=== PATIENT | female | born 1960 | race African-American/Black ===

== ENCOUNTER → 2024-05-15 | Day surgery (SDC) | payer BC | END | disposition home or self-care (01) | LOC: FMAMMOTONE 12:16 | PROVIDERS: ATTEND Family Medicine | PROC: 0HBT3ZX Excision of Right Breast, Percutaneous Approach, Diagnostic (ICD-10-PCS; principal; 2024-05-15) | DX: D24.1 Benign neoplasm of right breast (principal); N64.89 Other specified disorders of breast; R92.1 Mammographic calcification found on diagnostic imaging of breast | CPT/HCPCS: 19081; 76098-TC-FY; 88305-TC ==

== ENCOUNTER 2025-05-11 17:09 | Emergency (ER) | payer BC ==
[2025-05-11 17:22] VITALS: BMI 35.0
[2025-05-11] MEDS ORDERED: METOCLOPRAMIDE HCL INJECTION 10 MG/2 ML VIAL ONE (18:49)
[2025-05-11] MEDS ORDERED: ACETAMINOPHEN 500 MG TABLET (FP) ONE (18:49)
[2025-05-11] MEDS: ACETAMINOPHEN 500 MG TABLET (FP) PO ONE (19:15)
[2025-05-11] MEDS: METOCLOPRAMIDE HCL INJECTION 10 MG/2 ML VIAL IVPB STA (19:35)
[2025-05-11] MEDS: SODIUM CHLORIDE 1,000 ML IV ONE (19:35)
[2025-05-11 19:36] LABS: ABSOLUTE IMMATURE GRANULOCYTES 0.02 x10^3/uL (0.0-0.031); BASOPHILS # 0.07 x10^3/uL (0.01-0.08); EOSINOPHIL % 5.1 % (0.7-5.8); EOSINOPHILS # 0.39 x10^3/uL (0.04-0.36); MCHC 32.6 g/dl (32.2-35.5); MEAN CELL VOLUME 90.5 fl (79.4-94.8); MEAN PLT VOLUME 11.8 fl (9.4-12.3); MONOCYTE # 0.93 x10^3/uL (0.24-0.86); MONOCYTE % 12.1 % (4.7-12.5); RDW 13.2 % (12.4-16.4)
[2025-05-11 19:46] LABS: INR 1.08 (0.83-1.09); PROTHROMBIN TIME (PATIENT) 11.8 SEC (9.7-13.0)
[2025-05-11 19:49] LABS: ACTIVATED PTT 36.1 SECONDS (25.2-36.5)
[2025-05-11 20:00] LABS: EPI CELLS 13 /uL (0-25.1); HYALINE CASTS 0 /uL (0-3.1); URINE APPEARANCE CLEAR; URINE BACTERIA 88 /uL (0-1359); URINE BILIRUBIN NEGATIVE (NEGATIVE); URINE COLOR YELLOW; URINE GLUCOSE (UA) NEGATIVE (NEGATIVE); URINE KETONE NEGATIVE (NEGATIVE); URINE LEUK ESTERASE 1+ (NEGATIVE); URINE NITRITE NEGATIVE (NEGATIVE); URINE PROTEIN NEGATIVE (NEGATIVE); URINE RBC 6 /uL (0-23.9); URINE UROBILINOGEN 0.2 mg/dL (0.2-1.0); URINE WBC 7 /uL (0-25.8)
[2025-05-11 20:12] LABS: CO2 27.0 mmol/L (21-32)
[2025-05-11 20:13] LABS: GLUCOSE,RANDOM 100.0 mg/dL (74-106)
[2025-05-11 20:16] LABS: CREATININE 0.8 mg/dL (0.55-1.3); SGPT/ALT 41.0 U/L (13-61)
[2025-05-11 20:17] LABS: SGOT/AST 22.0 U/L (15-37)
[2025-05-11 20:18] LABS: TOT PROT 7.2 g/dl (6.4-8.2)
[2025-05-11 20:19] LABS: ALK PHOS 72.0 U/L (45-117)
[2025-05-11 21:44] VITALS: BP 105/70; PULSE 88; RESP 14; TEMP 97.8
== END 2025-05-11 23:08 | disposition left against medical advice (07) ==
LOC: JER 17:09
PROC: 3E033GC Introduction of Other Therapeutic Substance into Peripheral Vein, Percutaneous Approach (ICD-10-PCS; principal; 2025-05-11)
PROC: 3E0337Z Introduction of Electrolytic and Water Balance Substance into Peripheral Vein, Percutaneous Approach (ICD-10-PCS; 2025-05-11)
DX: R51.9 Headache, unspecified (principal); R42 Dizziness and giddiness; H53.8 Other visual disturbances; G93.6 Cerebral edema; J32.9 Chronic sinusitis, unspecified
CPT/HCPCS: 36415; 70450-TC; 70486-TC; 80053; 81003; 85025; 85610; 85651; 85730; 86140; 87077; 87086; 93005; 93010; 96361; 96374; 99285-25

== ENCOUNTER 2025-05-13 18:51 | Inpatient (IN) | payer BC ==
[2025-05-13 18:59] VITALS: BMI 35.4
[2025-05-13] MEDS ORDERED: ACETAMINOPHEN INJECTION 100 ML ONE (20:01)
[2025-05-13] MEDS: ACETAMINOPHEN 1000 MG/100 ML BAG IVPB ONE (20:11)
[2025-05-13] MEDS ORDERED: METOCLOPRAMIDE HCL INJECTION 10 MG/2 ML VIAL ONE (20:25)
[2025-05-13 20:27] LABS: BASOPHILS # 0.06 x10^3/uL (0.01-0.08); RDW 13.2 % (12.4-16.4)
[2025-05-13 20:28] LABS: ABSOLUTE IMMATURE GRANULOCYTES 0.03 x10^3/uL (0.0-0.031); EOSINOPHIL % 4.0 % (0.7-5.8); EOSINOPHILS # 0.31 x10^3/uL (0.04-0.36); MCHC 32.6 g/dl (32.2-35.5); MEAN CELL VOLUME 89.6 fl (79.4-94.8); MEAN PLT VOLUME 11.4 fl (9.4-12.3); MONOCYTE # 1.21 x10^3/uL (0.24-0.86); MONOCYTE % 15.6 % (4.7-12.5)
[2025-05-13] MEDS: METOCLOPRAMIDE HCL INJECTION 10 MG/2 ML VIAL IVPB ONE (20:32)
[2025-05-13 20:44] LABS: CO2 28.0 mmol/L (21-32); GLUCOSE,RANDOM 76.0 mg/dL (74-106)
[2025-05-13 20:48] LABS: SGOT/AST 30.0 U/L (15-37); SGPT/ALT 35.0 U/L (13-61)
[2025-05-13 20:49] LABS: CREATININE 0.7 mg/dL (0.55-1.3)
[2025-05-13 20:50] LABS: TOT PROT 7.0 g/dl (6.4-8.2)
[2025-05-13 20:51] LABS: ALK PHOS 71.0 U/L (45-117)
[2025-05-14] MEDS ORDERED: IBUPROFEN 600 MG TABLET (FP) PO PRN (01:14)
[2025-05-14] MEDS ORDERED: morphine CARPU-JECT 2 MG/1 ML DISP.SYRIN IVPUSH PRN (01:15)
[2025-05-14] MEDS: ACETAMINOPHEN 500 MG TABLET (FP) PO SCH (06:39)
[2025-05-14 06:52] LABS: MCHC 33.0 g/dl (32.2-35.5); MEAN CELL VOLUME 88.6 fl (79.4-94.8); MEAN PLT VOLUME 11.2 fl (9.4-12.3); RDW 12.7 % (12.4-16.4)
[2025-05-14 07:24] LABS: CO2 27.0 mmol/L (21-32); GLUCOSE,RANDOM 90.0 mg/dL (74-106)
[2025-05-14 07:28] LABS: CREATININE 0.7 mg/dL (0.55-1.3)
[2025-05-14] MEDS: ENOXAPARIN NA (PORCINE) 40 MG/0.4 ML DISP.SYRIN SQ SCH (10:40)
[2025-05-14] MEDS: VANCOMYCIN/WATER 1250 MG 1,250 MG/250 ML BAG IVPB SCH (13:06)
[2025-05-14] MEDS: MEROPENEM 2 GM in DEXTROSE 5%-WATER - 100 ML IVPB SCH (14:31)
[2025-05-14] MEDS: MEROPENEM 2 GM in SODIUM CHLORIDE 100 ML IVPB SCH (17:57)
[2025-05-14 20:12] LABS: HIV INTERPRETATION NEGATIVE (NEGATIVE)
[2025-05-14] MEDS: ROSUVASTATIN CA 5 MG TABLET PO SCH (22:01)
[2025-05-16] MEDS ORDERED: ACETAMINOPHEN 500 MG TABLET (FP) PO SCH (10:34)
[2025-05-16] MEDS ORDERED: ONDANSETRON 4 MG/2 ML VIAL IVPB PRN (10:35)
[2025-05-16] MEDS: IBUPROFEN 600 MG TABLET (FP) PO PRN (11:14)
[2025-05-16] MEDS: ACETAMINOPHEN 500 MG TABLET (FP) PO SCH (13:04)
[2025-05-16 13:33] VITALS: TEMP 98.5
[2025-05-16 17:02] VITALS: BP 136/66; PULSE 85; RESP 17
== END 2025-05-16 15:45 | disposition short-term general hospital (02) | DRG 58 ==
LOC: JER 18:51 → JERBED 21:23 → OBSVTOIN 05-14 01:11 → J7W 05-14 01:43
PROVIDERS: ADMIT Hospitalist; ATTEND Internal Medicine
DX: G93.89 Other specified disorders of brain (principal); G93.6 Cerebral edema; E78.5 Hyperlipidemia, unspecified; E66.9 Obesity, unspecified
CPT/HCPCS: 36415; 70553-TC; 71045-TC-FY; 71260-TC; 74177-TC; 80048; 80053; 84443; 85025; 85027; 86480; 87040; 87207; 87389; 93005; 93010; 99285-25; G0378; G0480